=== PATIENT | female | born 1990 | race Caucasian/White ===

== ENCOUNTER 2024-06-21 10:44 | Outpatient (CLI) | payer OTHER, SELFPAY ==
[~2024-06-21 10:44] MED LIST: ALBUTEROL SULFATE 2.5MG/0.5ML INH NEB SOLN INH PRN; EPINEPHrine INJ 1 MG/ML 1ML AMP IM PRN; NS 1,000 ML IV SCH; diphenhydrAMINE 50MG/ML VIAL IV PRN; methylPREDNISolone 125MG 2ML VIAL IV PRN
[2024-06-21 10:50] VITALS: BP 144/81; O2SAT 98
[2024-06-21] MEDS: ACETAMINOPHEN 650MG PO PRIOR TO INFUSION PO ONE (10:57)
[2024-06-21] MEDS ORDERED: VENL150C43 PO (11:11)
[2024-06-21] MEDS ORDERED: OMEP40CA4 PO (11:11)
[2024-06-21] MEDS: IRON SUCROSE 200 MG in NS 100 ML OVER 1 HR IV ONE (11:54)
== END 2024-06-21 13:10 ==
LOC: M INFU 10:44
PROVIDERS: ATTEND Nurse Practitioner Primary Care
DX: D50.8 Other iron deficiency anemias (principal)
CPT/HCPCS: 96365; J1756

== ENCOUNTER 2024-06-29 11:00 | Outpatient (CLI) | payer OTHER ==
[~2024-06-29 11:00] MED LIST changes: +OMEP40CA4 PO; +VENL150C43 PO
[2024-06-29 11:05] VITALS: BP 139/86; O2SAT 98
[2024-06-29] MEDS: ACETAMINOPHEN TAB 650MG DOSE (2X325MG) PO ONE (11:12)
[2024-06-29] MEDS: IRON SUCROSE 200 MG in NS 100 ML IV ONE (11:44)
[2024-06-29 12:50] VITALS: BP 139/86; O2SAT 100
== END 2024-06-29 12:55 ==
LOC: M INFU 11:00 → EDUNIT# 11:00 → M INFU 12:55
PROVIDERS: ATTEND Nurse Practitioner Primary Care
DX: D50.8 Other iron deficiency anemias (principal)
CPT/HCPCS: 96365; J1756

== ENCOUNTER 2024-07-06 10:15 | Outpatient (CLI) | payer OTHER ==
[~2024-07-06] VITALS: Ht 162.6 cm; Wt 104.0 kg
[2024-07-06 10:05] VITALS: BP 130/83; O2SAT 99
[2024-07-06] MEDS: ACETAMINOPHEN TAB 650MG DOSE (2X325MG) PO ONE (10:20)
[2024-07-06] MEDS: IRON SUCROSE 200 MG in NS 100 ML IV ONE (10:47)
[2024-07-06 11:55] VITALS: BP 122/78; O2SAT 99
== END 2024-07-06 12:00 ==
LOC: M INFU 10:15
PROVIDERS: ATTEND Nurse Practitioner Primary Care
DX: D50.8 Other iron deficiency anemias (principal)
CPT/HCPCS: 96365; J1756

== ENCOUNTER 2024-07-13 10:50 | Outpatient (CLI) | payer OTHER ==
[2024-07-13 10:50] VITALS: BP 144/85; O2SAT 100
[2024-07-13] MEDS: ACETAMINOPHEN 650MG PO PRIOR TO INFUSION PO ONE (10:55)
[2024-07-13] MEDS: IRON SUCROSE 200 MG in NS 100 ML OVER 1 HR IV ONE (10:56)
[2024-07-13 12:00] VITALS: BP 143/82; O2SAT 98
== END 2024-07-13 12:00 ==
LOC: M INFU 10:50
PROVIDERS: ATTEND Nurse Practitioner Primary Care
DX: D50.8 Other iron deficiency anemias (principal)
CPT/HCPCS: 96365; J1756

== ENCOUNTER 2024-07-20 11:05 | Outpatient (CLI) | payer OTHER ==
[~2024-07-20] VITALS: Ht 162.6 cm; Wt 104.0 kg
[2024-07-20] MEDS: ACETAMINOPHEN 650MG PO PRIOR TO INFUSION PO ONE (11:11)
[2024-07-20 11:22] VITALS: BP 128/77; O2SAT 99
[2024-07-20] MEDS: IRON SUCROSE 200 MG in NS 100 ML OVER 1 HR IV ONE (12:05)
[2024-07-20 13:09] VITALS: BP 134/85; O2SAT 97
== END 2024-07-20 13:15 ==
LOC: M INFU 11:05
PROVIDERS: ATTEND Nurse Practitioner Primary Care
DX: D50.8 Other iron deficiency anemias (principal)
CPT/HCPCS: 96365; J1756

== ENCOUNTER 2025-01-01 18:52 | Emergency (ER) | payer OTHER ==
[~2025-01-01] VITALS: Ht 162.6 cm; Wt 107.0 kg
[~2025-01-01 18:52] MED LIST changes: -ALBUTEROL SULFATE 2.5MG/0.5ML INH NEB SOLN INH PRN; -EPINEPHrine INJ 1 MG/ML 1ML AMP IM PRN; -NS 1,000 ML IV SCH; -diphenhydrAMINE 50MG/ML VIAL IV PRN; -methylPREDNISolone 125MG 2ML VIAL IV PRN
[2025-01-01 18:56] VITALS: BP 142/98; TEMP 96.9; O2SAT 100
[2025-01-01 19:31] LABS: KETONE, URINE MANUAL REFLEX OBSCURED mg/dL (NEGATIVE); NITRITE, URINE MANUAL RFX OBSCURED (NEGATIVE); PROTEIN, URINE MANUAL REFLEX OBSCURED mg/dL (NEGATIVE); UROBILINOGEN, UA MANUAL REFLEX OBSCURED mg/dl (NORMAL)
[2025-01-01 19:43] LABS: RBC, URINE MAN REFLEX TNTC /hpf (0-3)
[2025-01-01 19:44] LABS: SQUAMOUS EPITHELIAL URINE RFX SMALL AMOUNT /hpf (SMALL AMT)
[2025-01-01 19:46] LABS: HYALINE CAST, URINE RFX NONE SEEN /lpf (0-1); MICROSCOPIC EXAM RFX PERFORMED
== END 2025-01-01 20:06 | disposition left against medical advice (07) ==
LOC: M ED 18:52
DX: Z53.21 Procedure and treatment not carried out due to patient leaving prior to being seen by health care provider (principal)

== ENCOUNTER 2025-06-29 14:07 | Outpatient (CLI) | payer OTHER ==
[~2025-06-29 14:07] MED LIST changes: +ALBUTEROL SULFATE 2.5 MG/0.5 ML INH CONCENTRATE NEB SOLN INH PRN; +EPINEPHrine INJ 1 MG/ML 1ML AMP IM PRN
[2025-06-29] MEDS: FERRIC CARBOXYMALTOSE 750 MG (VIAL MATE) IN 100ML NS IV ONE (14:48)
[2025-06-29 14:52] VITALS: BP 134/84; O2SAT 99
[2025-06-29] MEDS: diphenhydrAMINE 50 MG/ML VIAL IV PRN (15:20)
[2025-06-29 15:55] VITALS: BP 154/74; O2SAT 99
== END 2025-06-29 15:55 ==
LOC: M INFU 14:07
PROVIDERS: ATTEND General Practice
DX: D50.9 Iron deficiency anemia, unspecified (principal); N92.0 Excessive and frequent menstruation with regular cycle
CPT/HCPCS: 96365; J1200; J1439; J2919

== ENCOUNTER 2025-07-07 14:00 | Outpatient (CLI) | payer OTHER ==
[~2025-07-07] VITALS: Ht 162.6 cm; Wt 101.3 kg
[~2025-07-07 14:00] MED LIST changes: +diphenhydrAMINE 50 MG/ML VIAL IV PRN
[2025-07-07 14:05] VITALS: BP 144/83; O2SAT 99
[2025-07-07] MEDS: FERRIC CARBOXYMALTOSE 750 MG (VIAL MATE) IN 100ML NS IV ONE (14:24)
[2025-07-07 15:00] VITALS: BP 150/88; O2SAT 99
== END 2025-07-07 15:00 | disposition home or self-care (01) ==
LOC: M INFU 14:00
PROVIDERS: ATTEND General Practice
DX: D50.9 Iron deficiency anemia, unspecified (principal)
CPT/HCPCS: 96365; J1439

== ENCOUNTER 2025-08-09 08:35 | Day surgery (SDC) | payer OTHER ==
[~2025-08-09] VITALS: Ht 162.6 cm; Wt 107.0 kg
[~2025-08-09 08:35] MED LIST changes: +ACETAMINOPHEN 500 MG TAB PO ONE; -ALBUTEROL SULFATE 2.5 MG/0.5 ML INH CONCENTRATE NEB SOLN INH PRN; +BANO25TA PO; -EPINEPHrine INJ 1 MG/ML 1ML AMP IM PRN; +FERR325T19 PO; +FLUO-365 PO; +HYDR-3363 PO; +LIDOCAINE 2% 100 MG/5 ML SDV (FOR ANES.) As Ordered ONE; +MIDAZOLAM INJ 2 MG/2 ML VIAL As Ordered ONE; +ROCURONIUM BROMIDE 50MG/5ML VIAL As Ordered ONE; +TRAN650T PO; +VITA500T9 PO; -diphenhydrAMINE 50 MG/ML VIAL IV PRN
[2025-08-09] MEDS ORDERED: SCOPOLAMINE 1MG TRANSDERMAL PATCH TOP ONE (08:55)
[2025-08-09 09:22] LABS: PLATELET COUNT, AUTOMATED 232 10^3/uL (150-450)
[2025-08-09] MEDS: metroNIDAZOLE 500 MG in IV 1 EA IV ONE (09:38)
[2025-08-09] MEDS: SCOPOLAMINE 1MG TRANSDERMAL PATCH TOP ONE (09:38)
[2025-08-09 09:42] LABS: CALCIUM LEVEL 8.5 MG/DL (8.5-10.1); CARBON DIOXIDE LEVEL 23 MMOL/L (20-31); CHLORIDE LEVEL 105 MMOL/L (98-107); CREATININE FOR GFR 0.71 MG/DL (0.55-1.30); GLOMERULAR FILTRATION RATE > 90.0 (>60); POTASSIUM SERUM 4.1 MMOL/L (3.5-5.1); SODIUM LEVEL 139 MMOL/L (136-145)
[2025-08-09] MEDS: ceFAZolin SOD 2 GM IV ONCE IV ONE (10:49)
[2025-08-09] MEDS ORDERED: SUGAMMADEX SODIUM 500 MG/5 ML VIAL As Ordered ONE (11:25)
[2025-08-09] MEDS ORDERED: KETOROLAC 30 MG/ML 1 ML VIAL As Ordered ONE (11:25)
[2025-08-09] MEDS ORDERED: ACETAMINOPHEN 1000MG/100ML IV BAG As Ordered ONE (11:25)
[2025-08-09] MEDS ORDERED: dexAMETHasone 4 MG/ML 1 ML VIAL As Ordered ONE (11:25)
[2025-08-09] MEDS ORDERED: ONDANSETRON 4MG 2ML VIAL As Ordered ONE (11:25)
[2025-08-09] MEDS: ONDANSETRON 4MG 2ML VIAL IV PRN (13:30)
[2025-08-09] MEDS: HYDROMORPHONE HCL 0.5 MG/0.5 ML SYRINGE IV PRN (13:31)
[2025-08-09 15:23] VITALS: BP 136/80; TEMP 97.6; O2SAT 96
== END 2025-08-09 15:26 | disposition home or self-care (01) ==
LOC: M SDC 08:35
PROVIDERS: ATTEND General Practice
DX: N93.9 Abnormal uterine and vaginal bleeding, unspecified (principal); D64.9 Anemia, unspecified; K21.9 Gastro-esophageal reflux disease without esophagitis; F84.0 Autistic disorder; F90.9 Attention-deficit hyperactivity disorder, unspecified type; G43.909 Migraine, unspecified, not intractable, without status migrainosus; Z87.891 Personal history of nicotine dependence; F41.9 Anxiety disorder, unspecified; Z79.899 Other long term (current) drug therapy; E66.9 Obesity, unspecified
CPT/HCPCS: 36415; 58571; 80048; 81025; 85027; 86850; 86900; 86901; 86920; 88307; J0131; J0665; J0688; J1100; J1171; J1836; J1885; J2250; J2405; J3010